=== PATIENT | female | born 2000 | race Caucasian/White ===

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

== ENCOUNTER 2020-06-03 21:04 | Emergency (ER) | payer OTHER ==
[~2020-06-03] VITALS: Ht 172.7 cm; Wt 115.0 kg
[~2020-06-03 21:04] MED LIST changes: +LABETALOL200 MG PO; +NIFEDIPINE60 MG PO
[2020-06-03] MEDS ORDERED: ASPIRIN 81 LOW81 MG PO (21:52)
[2020-06-03] MEDS ORDERED: PRENATA3 PO (21:52)
[2020-06-03 22:03] LABS: URINE BILIRUBIN - DIPSTICK NEGATIVE (NEGATIVE); URINE BLOOD DIPSTICK NEGATIVE (NEGATIVE); URINE COLOR YELLOW; URINE GLUCOSE - DIPSTICK NEGATIVE (NEGATIVE); URINE KETONE NEGATIVE (NEGATIVE); URINE LEUK ESTERASE NEGATIVE (NEGATIVE); URINE PH 6.5 (4.5-8.0); URINE PROTEIN - DIPSTICK NEGATIVE (NEG-TRACE); URINE SPECIFIC GRAVITY >=1.030; URINE UROBILINOGEN - DIPSTICK 0.2 E.U./dL (0.2)
[2020-06-03 22:04] LABS: HEMATOCRIT 39.7 % (37.0-47.0); HEMOGLOBIN 13.1 g/dl (12.0-16.0); IMMATURE GRANULOCYTES 0.4 % (0.0-5.0); MEAN CELL VOLUME 88.2 fL CALC (80.0-100.0); MEAN CORPUSCULAR HGB 29.1 pG CALC (26.0-32.0); NEUT# 7.3 thou/uL (2.00-7.15); RED BLOOD COUNT 4.5 mill/uL (4.20-5.60); RED CELL DISTRI WIDTH 13.2 % (11.5-15.5)
[2020-06-03 22:06] LABS: URINE NITRITE - DIPSTICK NEGATIVE (Negative)
[2020-06-03 22:32] LABS: ALBUMIN 4.3 g/dL (3.2-5.0); ALKALINE PHOSPHATASE 108 u/l (38-126); ANION GAP 13 (6-22 (CALC)); BILIRUBIN, TOTAL 0.5 mg/dL (0.0-1.4); BUN 11 mg/dL (7-17); BUN/CREATININE RATIO 20 (12-20 (CALC)); CARBON DIOXIDE 27 mmol/l (22-30); CHLORIDE 101 mmol/l (95-108); CREATININE 0.5 mg/dL (0.5-1.0); GFR > 60 ML/MIN (>=60 (CALC)); GFR FOR AFR.AMER. > 60 ML/MIN (>=60 (CALC)); POTASSIUM 4.5 mmol/l (3.5-5.1); SGOT/AST 19 u/l (14-36); SODIUM 137 mmol/l (137-146); TOTAL PROTEIN 6.8 g/dL (6.3-8.2)
[2020-06-03 23:13] LABS: BETA-HCG, QUANT(RESULT NUMBER) 36373 mIU/mL
[2020-06-03 23:52] VITALS: BP 140/67
== END 2020-06-03 23:50 | disposition home or self-care (01) ==
LOC: ED 21:04
PROVIDERS: Emergency Medicine
DX: O26.891 Other specified pregnancy related conditions, first trimester (principal); R10.30 Lower abdominal pain, unspecified; Z3A.00 Weeks of gestation of pregnancy not specified

== ENCOUNTER 2020-07-12 13:16 | Emergency (ER) | payer OTHER ==
[~2020-07-12 13:16] MED LIST changes: +ASPIRIN 81 LOW81 MG PO; +PRENATA3 PO
[2020-07-12 13:47] LABS: URINE BLOOD DIPSTICK NEGATIVE (NEGATIVE); URINE GLUCOSE - DIPSTICK NEGATIVE (NEGATIVE); URINE KETONE NEGATIVE (NEGATIVE); URINE LEUK ESTERASE NEGATIVE (Negative); URINE NITRITE - DIPSTICK NEGATIVE (Negative); URINE PROTEIN - DIPSTICK TRACE mg/dL (NEG-TRACE); URINE SPECIFIC GRAVITY >=1.030
[2020-07-12 13:48] LABS: URINE BILIRUBIN - DIPSTICK SMALL (NEGATIVE); URINE CLARITY HAZY; URINE COLOR DK. YELLOW
[2020-07-12 16:20] VITALS: BP 121/57
== END 2020-07-12 16:20 | disposition home or self-care (01) | DRG 833 ==
LOC: ED 13:16
DX: O9A.211 Injury, poisoning and certain other consequences of external causes complicating pregnancy, first trimester (principal); R10.32 Left lower quadrant pain; M54.5 Low back pain; O16.1 Unspecified maternal hypertension, first trimester; Z3A.12 12 weeks gestation of pregnancy; V49.40XA Driver injured in collision with unspecified motor vehicles in traffic accident, initial encounter

== ENCOUNTER 2020-08-06 16:11 | Emergency (ER) | payer OTHER ==
[~2020-08-06] VITALS: Ht 172.7 cm; Wt 110.0 kg
[2020-08-06 17:10] VITALS: BP 130/79
== END 2020-08-06 17:16 | disposition home or self-care (01) ==
LOC: ED 16:11
DX: O99.512 Diseases of the respiratory system complicating pregnancy, second trimester (principal); J02.9 Acute pharyngitis, unspecified; O10.912 Unspecified pre-existing hypertension complicating pregnancy, second trimester; Z3A.16 16 weeks gestation of pregnancy; Z13.9 Encounter for screening, unspecified

== ENCOUNTER 2020-08-16 21:22 | Emergency (ER) | payer OTHER ==
[~2020-08-16] VITALS: Ht 172.7 cm; Wt 118.1 kg
[2020-08-16 22:20] LABS: HEMATOCRIT 40.5 % (37.0-47.0); HEMOGLOBIN 12.8 g/dl (12.0-16.0); IMMATURE GRANULOCYTES 0.8 % (0.0-5.0); MEAN CELL VOLUME 94.2 fL CALC (80.0-100.0); MEAN CORPUSCULAR HGB 29.8 pG CALC (26.0-32.0); MEAN CORPUSCULAR HGB CONC 31.6 g/dL CAL (32.0-36.0); NEUT# 8.81 thou/uL (2.00-7.15); RED BLOOD COUNT 4.3 mill/uL (4.20-5.60); RED CELL DISTRI WIDTH 13.5 % (11.5-15.5)
[2020-08-16 23:00] VITALS: BP 140/81
== END 2020-08-16 23:10 | disposition home or self-care (01) ==
LOC: ED 21:22
PROVIDERS: Family Medicine
DX: O99.512 Diseases of the respiratory system complicating pregnancy, second trimester (principal); J02.9 Acute pharyngitis, unspecified; O16.2 Unspecified maternal hypertension, second trimester; Z3A.17 17 weeks gestation of pregnancy; Z20.822 Contact with and (suspected) exposure to COVID-19

== ENCOUNTER 2021-03-19 18:04 | Emergency (ER) | payer OTHER ==
[~2021-03-19] VITALS: Ht 172.7 cm; Wt 85.0 kg
[2021-03-19] MEDS ORDERED: ZOLOFT25 MG PO (18:35)
[2021-03-19 21:39] VITALS: BP 138/86
== END 2021-03-19 21:39 | disposition home or self-care (01) ==
LOC: ED 18:04
DX: U07.1 COVID-19 (principal); I10 Essential (primary) hypertension

== ENCOUNTER 2022-03-12 00:27 | Emergency (ER) | payer OTHER ==
[~2022-03-12] VITALS: Ht 172.7 cm; Wt 92.2 kg
[~2022-03-12 00:27] MED LIST changes: +ZOLOFT25 MG PO
[2022-03-12 01:00] VITALS: BP 114/72
[2022-03-12 01:15] VITALS: BP 102/56
[2022-03-12 01:25] LABS: BASO% 0.4 % (0-3); EOS% 1.7 % (0-8); IMMATURE GRANULOCYTES 0.5 % (0.0-5.0); MEAN CORPUSCULAR HGB 25.6 pG CALC (26.0-32.0); MEAN CORPUSCULAR HGB CONC 32.1 g/dL CAL (32.0-36.0); MONO% 7.2 % (2-13); NEUT# 4.12 thou/uL (2.00-7.15); NEUT% 55.2 % (42-76); RED BLOOD COUNT 4.29 mill/uL (4.20-5.60); RED CELL DISTRI WIDTH 18.9 % (11.5-15.5)
[2022-03-12 01:30] VITALS: BP 113/63
[2022-03-12 01:31] LABS: HEMATOCRIT 34.3 % (37.0-47.0)
[2022-03-12 01:45] VITALS: BP 114/54
[2022-03-12 02:00] VITALS: BP 114/68
[2022-03-12 02:16] VITALS: BP 114/68
== END 2022-03-12 02:15 | disposition home or self-care (01) ==
LOC: ED 00:27
PROVIDERS: Family Medicine
DX: J06.9 Acute upper respiratory infection, unspecified (principal); I10 Essential (primary) hypertension; Z20.822 Contact with and (suspected) exposure to COVID-19

== ENCOUNTER 2022-05-21 22:29 | Emergency (ER) | payer OTHER ==
[~2022-05-21] VITALS: Ht 172.7 cm; Wt 87.5 kg
[2022-05-21] MEDS ORDERED: EFFEXOR XR75 MG/CAP PO (22:55)
[2022-05-21] MEDS ORDERED: RITALIN10 MG PO (22:55)
[2022-05-21] MEDS ORDERED: TOPAMAX50 M1 PO (22:56)
[2022-05-22] MEDS ORDERED: ROBITUSSIN AC10 ML PO (00:20)
[2022-05-22] MEDS ORDERED: KEFLEX500 MG PO (00:20)
[2022-05-22 00:31] VITALS: BP 137/89
== END 2022-05-22 00:40 | disposition home or self-care (01) ==
LOC: ED 22:29
DX: J06.9 Acute upper respiratory infection, unspecified (principal); I10 Essential (primary) hypertension; Z20.822 Contact with and (suspected) exposure to COVID-19

== ENCOUNTER 2022-07-20 23:59 | Emergency (ER) | payer OTHER ==
[~2022-07-20] VITALS: Ht 172.7 cm; Wt 68.0 kg
[~2022-07-20 23:59] MED LIST changes: +EFFEXOR XR75 MG/CAP PO; +KEFLEX500 MG PO; +RITALIN10 MG PO; +ROBITUSSIN AC10 ML PO; +TOPAMAX50 M1 PO
[2022-07-21 00:06] VITALS: BP 140/87
[2022-07-21 00:15] VITALS: BP 123/82
[2022-07-21 00:30] VITALS: BP 122/76
[2022-07-21 00:45] VITALS: BP 128/70
[2022-07-21 01:00] VITALS: BP 129/65
[2022-07-21] MEDS ORDERED: TAM75CAP PO (01:40)
[2022-07-21 02:00] VITALS: BP 129/65
== END 2022-07-21 02:00 | disposition home or self-care (01) ==
LOC: ED 23:59
DX: J10.1 Influenza due to other identified influenza virus with other respiratory manifestations (principal); I10 Essential (primary) hypertension; Z20.822 Contact with and (suspected) exposure to COVID-19